=== PATIENT | female | born 1985 | race Hispanic/Latino ===

== ENCOUNTER 2025-02-17 16:25 | Emergency (ER) | payer OTHER ==
[~2025-02-17] VITALS: Ht 152.4 cm; Wt 76.2 kg
[2025-02-17] MEDS: ONDANSETRON HCL INJ 2MG/ML 2ML 2 MG/ML VIAL IV PRN (17:00)
[2025-02-17] MEDS: SODIUM CHLORIDE 0.9% 1000ML 1,000 ML IV STA (17:00)
[2025-02-17 17:06] LABS: BASOPHILS % 0.4 % (0.0-1.0); EOSINOPHILS % 1.2 % (0.0-6.0); LYMPHOCYTES % 22.7 % (18.0-39.1); MONOCYTES % 7.7 % (4.4-11.3); NEUTROPHILS % 67.7 % (38.7-80.0); RED CELL DISTRIBUTION WIDTH 14.9 % (11.7-14.4)
[2025-02-17] MEDS: DEXTROSE 50% SYRINGE 50 ML IV STA (17:13)
[2025-02-17 17:24] LABS: EST GLOMERULAR FILTRATION RATE 115.0 ML/MIN (>=60)
[2025-02-17] MEDS: KETOROLAC TROMETHAMINE 30 MG/ML VIAL IV STA (18:06)
[2025-02-17] MEDS: DIPHENHYDRAMINE HCL 25 MG CAP PO ONE (18:07)
[2025-02-17] MEDS: METOCLOPRAMIDE HCL 10 MG/2ML VIAL IV ONE (18:07)
[2025-02-17] MEDS: SODIUM CHLORIDE 0.9% 1000ML 1,000 ML IV ONE (18:21)
[2025-02-17] MEDS: METOPROLOL TARTRATE INJ 1 MG/ML VIAL IV ONE (18:22)
[2025-02-17 18:25] LABS: LEUKOCYTE ESTERASE ,URINE MODERATE (NEGATIVE); PROTEIN,URINE DIPSTICK 1+ (NEGATIVE)
[2025-02-17 18:26] LABS: URINE UROBILINOGEN 0.2 mg/dL (0.2 - 1)
[2025-02-17 18:29] LABS: AMPHETAMINES SCREEN,URINE NEGATIVE (NEGATIVE); CANNABINOIDS SCREEN,URINE NEGATIVE (NEGATIVE); COCAINE SCREEN,URINE NEGATIVE (NEGATIVE); METHADONE SCREEN, URINE NEGATIVE (NEGATIVE); OPIATES SCREEN,URINE NEGATIVE (NEGATIVE)
[2025-02-17 18:42] LABS: WBC,URINE (MAN) >50 /HPF (0-5)
[2025-02-17 18:43] LABS: EPITHELIAL CELLS,URINE MANY /LPF
[2025-02-17 18:45] VITALS: PULSE 118; RESP 21; TEMP 97.9
[2025-02-17] MEDS ORDERED: CEFDINIR300 MG PO (19:37)
[2025-02-17 20:00] VITALS: BP 145/99; PULSE 112; RESP 18; TEMP 98.2; O2SAT 100
== END 2025-02-17 20:18 | disposition home or self-care (01) ==
LOC: ER 16:31
DX: R11.2 Nausea with vomiting, unspecified (principal); N39.0 Urinary tract infection, site not specified; I10 Essential (primary) hypertension; R51.9 Headache, unspecified
CPT/HCPCS: 36415; 70450; 80053; 80307; 81001; 82948; 83690; 84702; 85025; 99284; J0696; J1885; J2405; J2765; J7030; J7799